=== PATIENT | male | born 1965 | race Caucasian/White ===

== ENCOUNTER → 2017-08-20 | Outpatient (CLI) | payer OTHER ==
[~2017-08-20] MED LIST: VARI50KI IM
[2017-08-20 08:30] LABS: PLATELET COUNT, AUTOMATED 180 K/uL (150-450)
[2017-08-20 08:51] LABS: LDL CHOLESTEROL 112 mg/dl
== END ==
LOC: LAB 08:08
PROVIDERS: ATTEND Nurse Practitioner Family
DX: Z12.5 Encounter for screening for malignant neoplasm of prostate (principal); Z00.00 Encounter for general adult medical examination without abnormal findings
CPT/HCPCS: 36415; 82040; 82247; 82310; 82374; 82435; 82465; 82565; 82947; 83718; 84075; 84132; 84153; 84155; 84295; 84443; 84450; 84460; 84478; 84520; 85025

== ENCOUNTER 2017-09-19 00:10 | Day surgery (SDC) | payer OTHER ==
[~2017-09-19] VITALS: Ht 177.8 cm; Wt 87.1 kg
[~2017-09-19 00:10] MED LIST changes: +HYDR-385 PO; +META800T18 PO; +[UNRECOGNIZED DRUG - OTHER]
[2017-09-19] MEDS ORDERED: PROPOFOL EMUL(*) 10MG/ML 20 ML 40 ML ONE (07:04)
[2017-09-19] MEDS: NORMOSOL R SOLN(*) 1000 ML BAG 1,000 ML IV PRN ×2 (07:43→09:54)
[2017-09-19 07:58] VITALS: BP 126/93
[2017-09-19] MEDS ORDERED: LIDOCAINE/SOD BICARB 8.4% SYR ID ONE (08:10)
[2017-09-19] MEDS ORDERED: PROPOFOL EMUL(*) 10MG/ML 20 ML 20 ML ONE (10:14)
[2017-09-19 10:26] VITALS: BP 98/66
--- NOTE | 2017-09-19 10:34 | Short(Outpt) Discharge Summary ---
Discharge Summary Reason for Hosp/Final Diag: (1) Colon cancer screening Status: Chronic Hospital Course & Plan: Colonoscopy with polypectomy x1 completed without problems. Departure Discharge to: Home, Self Care Discharge Instructions Diet: Regular Activity: As Tolerated Special Instructions: Your colonoscopy was completed without problems and your prep was excellent (Good Job!!). I removed a small polyp from your colon and it was sent to pathology. My office will call you in the next week to let you know what the polyp is and when your next colonoscopy should be (either 5 or 10 years depending on if the polyp is precancerous or completely benign). DEMARIO CALDERON MD Sep 19, 2017 10:34
[2017-09-19 10:45] VITALS: BP 113/77
[2017-09-19 11:00] VITALS: BP 128/91
[2017-09-19 11:06] VITALS: BP 112/83
[2017-09-19 11:08] VITALS: BP 115/93
== END 2017-09-19 11:17 | disposition home or self-care (01) ==
LOC: OR 00:10
PROVIDERS: ATTEND Surgery
DX: Z12.11 Encounter for screening for malignant neoplasm of colon (principal); K63.5 Polyp of colon
CPT/HCPCS: 00811; 45385; 88305; J2704

== ENCOUNTER 2018-11-09 16:09 | Emergency (ER) | payer OTHER ==
[2018-11-09] MEDS ORDERED: ASPIRIN 81 MG CHEW PO ONE (16:25)
[2018-11-09 16:40] LABS: PLATELET COUNT, AUTOMATED 174 K/uL (150-450)
--- NOTE | 2018-11-09 17:06 | RADIOLOGY IMAGING REPORT ---
FACILITY: [facility] - [place] PATIENT NAME: Bhupinder Webb : 1965 MR: [id number] V: [id number] EXAM DATE: ORDERING PHYSICIAN: ORTEGA COURTNEY TECHNOLOGIST: Location: [facility] - [place] Patient: Bhupinder Webb : 1965 Visit/Account:[id number] Date of Sevice: 11/09/2018 Examination: CHEST SINGLE AP Comparison: None. History: Chest pain and tightness. Findings: Cardiac and hilar contour size is normal. No consolidation, nodule, or evidence of acute pe ribronchial inflammation. No pneumothorax, edema, or effusion. Osseous structures are intact. IMPRESSION: No findings of acute cardiopulmonary disease. Report Dictated By: Mahendra Rizvi MD at 11/09/2018 4:57 PM Report E-Signed By: Mahendra Rizvi MD at 11/09/2018 5:00 PM [id number]
[2018-11-09 17:10] LABS: INR 0.94
[2018-11-09] MEDS ORDERED: NS(*) 0.9% 1000 ML BAG 1,000 ML IV ONE (17:10)
--- NOTE | 2018-11-09 17:24 | EKG ---
FACILITY: [facility] - [place] PATIENT NAME: HUSAM ARGUELLO : [id number] MR: [id number] V: [id number] EXAM DATE: ORDERING PHYSICIAN: ORTEGA COURTNEY TECHNOLOGIST: Test Reason : Blood Pressure : / mmHG Vent. Rate : 091 BPM Atrial Rate : 091 BPM P-R Int : 160 ms QRS Dur : 088 ms QT Int : 342 ms P-R-T Axes : 030 -01 022 degrees QTc Int : [address] elevation in lateral leads When compared with ECG of 20-MAR-2016 10:07, No significant change was found Confirmed by Aung Lucio ([id number]) on 11/10/2018 7:49:51 AM Referred By: Confirmed By:Aung Saldana
--- NOTE | 2018-11-09 18:58 | ER Report ---
History and Physical Time Seen By MD: 16:15 Hx. of Stated Complaint: Pt. has been having chest pain for 3 days. Above sternum, and pain increases with deep breaths. Pain 7/10 with deep breathing. Also, SOB at rest and with activity. Reports can't catch his breath. HPI/ROS CHIEF COMPLAINT: Chest pain HISTORY OF PRESENT ILLNESS: Patient is a 53-year-old male who presents the ED with complaint of intermittent chest pain and shortness of breath for the past 3 days. 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 He states that he believes that his chest pain may be due to anxiety b ut that the trial is now over and continues to have some of the chest pain. He became concerned today when he was golfing and noticed some more shortness of breath and chest pain intermittently. He believes that the shortness of breath might get slightly worse with exertion. He denies any history of hypertension, smoking, diabetes. His mother did of heart disease at the age of 67. He has a brother who has no health issues. Patient denies any cough. He states that he did have stress testing and other cardiac testing completed 10 years ago that was completely normal. REVIEW OF SYSTEMS: Constitutional: No fever, no chills. Eyes: No discharge. ENT: No sore throat. Cardiovascular: See history of present illness. Respiratory: No cough, no shortness of breath. Gastrointestinal: No abdominal pain, no vomiting. Genitourinary: No hematuria. Musculoskeletal: No back pain. Skin: No rashes. Neurological: No headache. Allergies: Coded Allergies: No Known Drug Allergies (Unverified , 11/09/18) Home Meds No Active Prescriptions or Reported Meds Reviewed Nurses Notes: Yes Old Medical Records Reviewed: Yes Hx Smoking: No Smoking Status: Never Smoker Hx Substance Use Disorder: No Hx Alcohol Use: Yes Constitutional Vital Sign - Last 24 Hours 11/09/18 11/09/18 11/09/18 11/09/18 16:11 16:13 16:14 16:19 Temp 99.1 Pulse 89 91 89 Resp 16 25 18 B/P (MAP) 126/95 (105) 126/95 Pulse Ox 95 95 93 O2 Delivery Room Air 11/09/18 11/09/18 11/09/18 11/09/18 16:24 16:29 16:30 16:34 Pulse 86 86 86 Resp 16 18 21 B/P (MAP) 134/92 (106) Pulse Ox 91 90 90 11/09/18 11/09/18 11/09/18 11/09/18 16:39 16:44 16:49 16:54 Pulse 84 88 88 87 Resp 20 9 15 19 Pulse Ox 89 90 90 88 11/09/18 11/09/18 11/09/18 11/09/18 16:59 17:00 17:04 17:09 Pulse 89 84 85 Resp 19 20 B/P (MAP) 119/96 (104) Pulse Ox 90 90 89 11/09/18 11/09/18 11/09/18 11/09/18 17:14 17:19 17:24 17:29 Pulse 82 84 84 81 Resp 25 19 18 Pulse Ox 90 89 90 90 11/09/18 11/09/18 11/09/18 11/09/18 17:30 17:34 17:39 17:44 Pulse 84 82 81 Resp 19 17 B/P (MAP) 129/93 (105) Pulse Ox 90 90 92 11/09/18 11/09/18 11/09/18 17:49 19:00 19:30 Pulse 83 83 ??? Resp 19 14 14 B/P (MAP) 136/87 (103) 130/86 (101) Pulse Ox 93 90 90 Physical Exam General Appearance: The patient is alert, has no immediate need for airway protection and no signs of toxicity. Patient appears to be no acute distress. Eyes: Pupils equal and round no pallor or injection. ENT, Mouth: Mucous membranes are moist. Respiratory: There are no retractions, lungs are clear to auscultation. Cardiovascular: Regular rate and rhythm. Gastrointestinal: Abdomen is soft and non tender, no masses, bowel sounds normal. Skin: Warm and dry, no rashes. Musculoskeletal: Neck is supple non tender. Extremities are nontender, nonswollen and have full range of motion. DIFFERENTIAL DIAGNOSIS: After history and physical exam differential diagnosis was considered for chest pain including but not limited to myocardial ischemia, pericarditis pulmonary embolus, chest wall pain, pleural inflammation and pulmonary infectious causes. Medical Decision Making Data Points Result Diagram: 11/09/18 1624 11/09/18 1624 Laboratory Hematology Test 11/09/18 16:24 11/09/18 19:45 Red Blood Count 4.99 M/uL (4.00-5.60) Mean Corpuscular Volume 89.6 fL (80.0-96.0) Mean Corpuscular Hemoglobin 30.9 pg (26.0-33.0) Mean Corpuscular Hemoglobin Concent 34.5 g/dL (32.0-36.0) Red Cell Distribution Width 13.2 % (11.5-14.5) Mean Platelet Volume 9.0 fL (7.2-11.1) Neutrophils (%) (Auto) 69.4 % (39.4-72.5) Lymphocytes (%) (Auto) 17.5 % (17.6-49.6) Monocytes (%) (Auto) 9.0 % (4.1-12.4) Eosinophils (%) (Auto) 2.9 % (0.4-6.7) Basophils (%) (Auto) 1.2 % (0.3-1.4) Nucleated RBC Relative Count (auto) 0.2 /100WBC Neutrophils # (Auto) 6.1 K/uL (2.0-7.4) Lymphocytes # (Auto) 1.5 K/uL (1.3-3.6) Monocytes # (Auto) 0.8 K/uL (0.3-1.0) Eosinophils # (Auto) 0.3 K/uL (0.0-0.5) Basophils # (Auto) 0.1 K/uL (0.0-0.1) Nucleated RBC Absolute Count (auto) 0.02 K/uL Prothrombin Time 12.5 seconds (12.0-14.4) Prothromb Time International Ratio 0.94 Activated Partial Thromboplast Time 33 seconds (23-35) D-Dimer Quantitative (PE/DVT) 0.40 ug/ml (0-0.50) Sodium Level 138 mmol/L (137-145) Potassium Level 4.0 mmol/L (3.5-5.0) Chloride Level 102 mmol/L (98-107) Carbon Dioxide Level 26 mmol/L (22-30) Blood Urea Nitrogen 17 mg/dl (9-21) Creatinine 1.40 mg/dl (0.66-1.25) Glomerular Filtration Rate Calc 53.2 Random Glucose 95 mg/dl (75-110) Calcium Level 9.2 mg/dl (8.4-10.2) Total Bilirubin 0.9 mg/dl (0.2-1.3) Aspartate Amino Transf (AST/SGOT) 31 U/L (0-35) Alanine Aminotransferase (ALT/SGPT) 43 U/L (0-56) Alkaline Phosphatase 97 U/L (0-126) Total Protein 7.2 g/dl (6.3-8.2) Albumin 4.4 g/dl (3.5-5.0) Troponin I < 0.012 ng/ml Chemistry Test 11/09/18 16:24 11/09/18 19:45 White Blood Count 8.8 k/uL (4.5-11.0) Red Blood Count 4.99 M/uL (4.00-5.60) Hemoglobin 15.4 g/dL (14.0-18.0) Hematocrit 44.7 % (42.0-52.0) Mean Corpuscular Volume 89.6 fL (80.0-96.0) Mean Corpuscular Hemoglobin 30.9 pg (26.0-33.0) Mean Corpuscular Hemoglobin Concent 34.5 g/dL (32.0-36.0) Red Cell Distribution Width 13.2 % (11.5-14.5) Platelet Count 174 K/uL (150-450) Mean Platelet Volume 9.0 fL (7.2-11.1) Neutrophils (%) (Auto) 69.4 % (39.4-72.5) Lymphocytes (%) (Auto) 17.5 % (17.6-49.6) Monocytes (%) (Auto) 9.0 % (4.1-12.4) Eosinophils (%) (Auto) 2.9 % (0.4-6.7) Basophils (%) (Auto) 1.2 % (0.3-1.4) Nucleated RBC Relative Count (auto) 0.2 /100WBC Neutrophils # (Auto) 6.1 K/uL (2.0-7.4) Lymphocytes # (Auto) 1.5 K/uL (1.3-3.6) Monocytes # (Auto) 0.8 K/uL (0.3-1.0) Eosinophils # (Auto) 0.3 K/uL (0.0-0.5) Basophils # (Auto) 0.1 K/uL (0.0-0.1) Nucleated RBC Absolute Count (auto) 0.02 K/uL Prothrombin Time 12.5 seconds (12.0-14.4) Prothromb Time International Ratio 0.94 Activated Partial Thromboplast Time 33 seconds (23-35) D-Dimer Quantitative (PE/DVT) 0.40 ug/ml (0-0.50) Glomerular Filtration Rate Calc 53.2 Calcium Level 9.2 mg/dl (8.4-10.2) Total Bilirubin 0.9 mg/dl (0.2-1.3) Aspartate Amino Transf (AST/SGOT) 31 U/L (0-35) Alanine Aminotransferase (ALT/SGPT) 43 U/L (0-56) Alkaline Phosphatase 97 U/L (0-126) Total Protein 7.2 g/dl (6.3-8.2) Albumin 4.4 g/dl (3.5-5.0) Troponin I < 0.012 ng/ml Coagulation Test 11/09/18 16:24 Prothrombin Time 12.5 seconds Prothromb Time International Ratio 0.94 Activated Partial Thromboplast Time 33 seconds D-Dimer Quantitative (PE/DVT) 0.40 ug/ml EKG/Imaging EKG Interpretation 12 lead EKG: Rhythm: Normal sinus rhythm, rate [address] segments: No acute ST changes identified. ED Course/Re-evaluation ED Course Will obtain labs, EKG, imaging. Reviewed initial labs and imaging with patient. Everything appears essentially normal. Discussed repeating a troponin at the 3 hour fidel as well as an EKG at that time. He is comfortable with this plan. 11/09/2018 8:20:00 pm - normal repeat troponin EKG with patient. Advised follow-up with primary care provider next 2-3 days. Decision to Disposition Date: Nov 09, 2018 Decision to Disposition Time: 20:20 Depart Departure Latest Vital Signs Vital Signs Date Time Temp Pulse Resp B/P (MAP) Pulse Ox O2 Delivery O2 Flow Rate FiO2 11/09/18 19:30 ??? 14 130/86 (101) 90 11/09/18 16:13 99.1 Room Air Impression: Primary Impression: Chest pain Condition: Stable Disposition: HOME OR SELF-CARE Referrals: ANA LAURA-RICE,[employer] (PCP) New Scripts No Active Prescriptions or Reported Meds Patient Instructions: Chest Pain (ED) Additional Instructions: Stay well-hydrated. Follow-up with primary care provider in next 2-3 days. If having any worsening or concerning symptoms may return to the emergency department. Problem Qualifiers Primary Impression: Chest pain Chest pain type: unspecified Qualified Codes: R07.9 - Chest pain, unspecified ORTEGA COURTNEY PA-C Nov 09, 2018 18:58
--- NOTE | 2018-11-09 19:31 | EKG ---
[place] [facility] [place]IENT NAME: HUSAM ARGUELLO : [id number] MR: [id number] V: [id number] EXAM DATE: ORDERING PHYSICIAN: ORTEGA COURTNEY TECHNOLOGIST: JOSE MIGUEL Test Reason : CHEST PAIN Blood Pressure : / mmHG Vent. Rate : 083 BPM Atrial Rate : 083 BPM P-R Int : 160 ms QRS Dur : 092 ms QT Int : 366 ms P-R-T Axes : 028 013 013 degrees QTc Int : 430 ms Normal sinus rhythm Normal ECG When compared with ECG of 09-NOV-2018 16:14, No significant change was found Confirmed by Aung Lucio ([id number] on 11/10/2018 7:51:03 AM Referred By: Confirmed By:Aung Saldana
== END 2018-11-09 20:27 | disposition home or self-care (01) ==
LOC: ER 16:21
DX: R07.9 Chest pain, unspecified (principal)
CPT/HCPCS: 36415; 71045; 84484; 85025; 85379; 85610; 85730; 93005; 96360; 99284; J7030; 82040; 82247; 82310; 82374; 82435; 82565; 82947; 84075; 84132; 84155; 84295; 84450; 84460; 84520